=== PATIENT | female | born 1930 | race Caucasian/White ===

== ENCOUNTER → 2016-08-28 | Outpatient (CLI) | payer MEDICARE, OTHER ==
[2016-08-28 13:39] LABS: INR 1.14
== END ==
LOC: M SMT 11:28
PROVIDERS: ATTEND Emergency Medicine
DX: I74.9 Embolism and thrombosis of unspecified artery (principal)

== ENCOUNTER → 2016-09-07 | Outpatient (CLI) | payer MEDICARE, OTHER ==
[2016-09-07 13:28] LABS: INR 2.2
== END ==
LOC: M SMT 10:56
PROVIDERS: ATTEND Emergency Medicine
DX: I74.9 Embolism and thrombosis of unspecified artery (principal)

== ENCOUNTER → 2016-09-21 | Outpatient (CLI) | payer MEDICARE, OTHER ==
[2016-09-21 13:12] LABS: INR 2.54
== END ==
LOC: M SMT 10:38
PROVIDERS: ATTEND Emergency Medicine
DX: I74.9 Embolism and thrombosis of unspecified artery (principal)

== ENCOUNTER → 2016-10-12 | Outpatient (CLI) | payer MEDICARE, OTHER ==
[2016-10-12 13:41] LABS: INR 2.41
== END ==
LOC: M SMT 11:08
PROVIDERS: ATTEND Emergency Medicine
DX: I74.9 Embolism and thrombosis of unspecified artery (principal)

== ENCOUNTER → 2016-11-02 | Outpatient (CLI) | payer MEDICARE, OTHER ==
[2016-11-02 13:57] LABS: INR 2.09
== END ==
LOC: M SMT 10:00
PROVIDERS: ATTEND Emergency Medicine
DX: I74.9 Embolism and thrombosis of unspecified artery (principal)

== ENCOUNTER → 2016-12-01 | Outpatient (CLI) | payer MEDICARE, OTHER ==
[2016-12-01 13:22] LABS: INR 1.94
== END ==
LOC: M SMT 11:10
PROVIDERS: ATTEND Emergency Medicine
DX: I74.9 Embolism and thrombosis of unspecified artery (principal)

== ENCOUNTER → 2017-11-10 | Outpatient (CLI) | payer MEDICARE, OTHER | LOC: M LRY 12:35 | DX: M25.761 Osteophyte, right knee (principal); I70.201 Unspecified atherosclerosis of native arteries of extremities, right leg; M25.561 Pain in right knee | CPT/HCPCS: 73564; G0463 ==

== ENCOUNTER → 2018-11-03 | Outpatient (CLI) | payer MEDICARE, OTHER ==
--- NOTE | 2018-11-03 17:53 | REP ---
REASON FOR EXAM: Shoulder pain. There are no priors for comparison. There is mild AC joint DJD. The glenohumeral relationship is within normal limits. There is no acute fracture, dislocation, or subluxation. IMPRESSION:Chronic changes as described above. Electronically Signed by Jim Thomas DO 11/04/2018 10:31 A
== END ==
LOC: M LRY 13:55
PROVIDERS: ATTEND Family Medicine
DX: M19.012 Primary osteoarthritis, left shoulder (principal); M25.512 Pain in left shoulder
CPT/HCPCS: 73030; G0463

== ENCOUNTER → 2019-12-08 | Outpatient (CLI) | payer OTHER, MEDICARE ==
[~2019-12-08] MED LIST: ALPR0.25; AMLODIPINE 2.5; ATIV1TAB10; BACT800T5 PO; HYOS125TA; MORP20SO3; OMEP-218
[2019-12-08 15:03] LABS: BLOOD UREA NITROGEN 14 MG/DL (7-18); CREATININE FOR GFR 0.83 MG/DL (0.55-1.30); GLOMERULAR FILTRATION RATE > 60.0 (>32)
== END ==
LOC: M LAB 13:29
PROVIDERS: ATTEND Surgery
DX: Z01.818 Encounter for other preprocedural examination (principal)

== ENCOUNTER → 2019-12-13 | Outpatient (CLI) | payer MEDICARE, OTHER ==
[~2019-12-13] MED LIST changes: +GASTROGRAFIN SOLUTION 30ML (Q9963) As Ordered ONE; +ISOVUE-370 76% 100ML VIAL As Ordered ONE
--- NOTE | 2019-12-29 08:22 | REP ---
CT ABDOMEN AND PELVIS CLINICAL: Neoplasm of the pancreas. TECHNIQUE: Axial contrast enhanced images from the lung bases to the pubic symphysis using oral (per protocol) and 100 mL Isovue-370 intravenous contrast material with coronal and sagittal reformations. Precontrast arterial phase and delayed-phased images of the abdomen were obtained as well. COMPARISON: None available. FINDINGS: A pigtail catheter via the anterior abdominal wall extends through the liver into the region of the eileen hepatis and appears to be within the lumen of the duodenum. Correlation with surgical notes and procedure is recommended. A pancreatic ductal stent is also identified extending from the head of the pancreas into the duodenum. Further evaluation of the pancreas suggests an enlarged pancreatic head with low-density changes measuring 2.5 cm, which may represent the malignancy as per the history. The liver itself demonstrates significant biliary ductal dilatation and there are heterogeneous low-density changes and rounded low-density lesions noted, primarily involving the left hepatic lobe, concerning for cysts, but metastatic lesions cannot definitively be excluded. Spleen, bilateral adrenal glands, presumed collapsed gallbladder, and bilateral kidneys are essentially normal. Subcentimeter left renal hypodensity likely represents a small cyst, but is too small to characterize. The enteric system is without obstruction or acute inflammatory process. Few sigmoid diverticula noted without acute diverticulitis. Pelvis demonstrates normal bladder and evidence for prior hysterectomy. No ascites. No focal obvious mass lesion within the abdomen or pelvis. No obvious adenopathy. Abdominal aorta and vasculature demonstrate atherosclerotic changes without aneurysm or dissection. Musculoskeletal structures demonstrate degenerative changes without focal osseous abnormality. Lung bases demonstrate chronic appearing interstitial changes and mild scarring. IMPRESSION: * Pigtail catheter and pancreatic duct stent as described above should be correlated with surgical history. * Significant intrahepatic biliary ductal dilatation along with irregular low- density changes within the left lobe of the liver, which may represent both cysts and possible underlying metastatic disease given the patients stated history of pancreatic neoplasm. * No ascites. No further mass lesion within the abdomen or pelvis. No obvious adenopathy. * Pancreatic head lesion consistent with the given history of malignancy. MTDD
== END ==
LOC: M RAD 08:01
PROVIDERS: ATTEND Surgery
DX: C25.0 Malignant neoplasm of head of pancreas (principal); K57.30 Diverticulosis of large intestine without perforation or abscess without bleeding; K76.89 Other specified diseases of liver; Z95.828 Presence of other vascular implants and grafts
CPT/HCPCS: 74178; Q9963; Q9967

== ENCOUNTER 2019-12-18 14:17 | Emergency (ER) | payer MEDICARE, OTHER ==
[~2019-12-18] VITALS: Ht 152.4 cm; Wt 45.9 kg
[2019-12-18] MEDS ORDERED: AMLODIPINE 2.5 (14:33)
[2019-12-18] MEDS ORDERED: OMEP-218 (14:33)
[2019-12-18] MEDS ORDERED: ATIV1TAB10 (14:33)
[2019-12-18] MEDS ORDERED: MORP20SO3 (14:33)
[2019-12-18] MEDS ORDERED: ALPR0.25 (14:33)
[2019-12-18] MEDS ORDERED: HYOS125TA (14:33)
[2019-12-18] MEDS ORDERED: KETOROLAC 30 MG/ML 1ML VIAL IV ONE (16:45)
[2019-12-18 17:54] LABS: BASO # 0.1 10^3/uL (0.0-0.2); BASO % 0.8 % (0.0-1.0); EOS # 0.1 10^3/uL (0.0-0.5); EOS % 0.8 % (0.0-3.0); HEMATOCRIT 32.4 % (36.0-47.0); HEMOGLOBIN 10.2 g/dl (12.0-15.5); LYMPH # 1.9 10^3/uL (1.5-5.0); LYMPH % 16.2 % (24.0-44.0); MEAN CORPUSCULAR HEMOGLOBIN 28.8 pg (27.0-33.0); MEAN CORPUSCULAR HGB CONC 31.5 g/dl (32.0-36.5); MEAN CORPUSCULAR VOLUME 91.5 fl (80.0-96.0); MONO # 0.8 10^3/uL (0.0-0.8); MONO % 6.8 % (0.0-5.0); PLATELET COUNT, AUTOMATED 446 10^3/uL (150-450); RED BLOOD COUNT 3.54 10^6/uL (4.00-5.40); WHITE BLOOD COUNT 11.9 10^3/uL (4.0-10.0)
[2019-12-18 17:59] LABS: PARTIAL THROMBOPLASTIN TIME 45.5 SECONDS (24.2-38.5)
[2019-12-18 18:13] LABS: ALBUMIN 2.6 GM/DL (3.2-5.2); BILIRUBIN,DIRECT 0.8 MG/DL (0.0-0.2); TOTAL PROTEIN 7.2 GM/DL (6.4-8.2)
--- NOTE | 2019-12-18 18:44 | REPVR ---
PROCEDURE INFORMATION: Exam: US Abdomen, Limited; Soft Tissue Exam date and time: 12/18/2019 5:36 PM Age: 89 years old Clinical indication: Mass, lump, or swelling; Additional info: Had drain in gb came out draining bile ? infected site/gb TECHNIQUE: Imaging protocol: US abdomen. Real time ultrasound with image documentation. Limited exam focused on the soft tissues. COMPARISON: CT ABD PELVIS W/O FOL BY WIT 12/13/2019 9:25 AM FINDINGS: Gallbladder: A questionable contracted 5.6 x 0.5 x 0.6 cm gallbladder is seen. Soft tissues: The surgical drainage site in the anterior abdominal wall and deep soft tissues shows an irregularly-shaped 3.5 x 2.3 x 1.6 cm fluid collection which has a minimal amount of vascularity in its periphery. This could be a biloma or a partially-treated abscess in the site of a previously pulled surgical drain. IMPRESSION: 1. A questionable contracted 5.6 x 0.5 x 0.6 cm gallbladder is seen. 2. The surgical drainage site in the anterior abdominal wall and deep soft tissues shows an irregularly-shaped 3.5 x 2.3 x 1.6 cm fluid collection which has a minimal amount of vascularity in its periphery. This could be a biloma or a partially-treated abscess in the site of a previously pulled surgical drain. Electronically signed by: John Kearney On 12/18/2019 18:44:21 PM
--- NOTE | 2019-12-18 18:46 | REPVR ---
PROCEDURE INFORMATION: Exam: XR Chest, 2 Views Exam date and time: 12/18/2019 4:34 PM Age: 89 years old Clinical indication: Other: Catheter tube fell out; Additional info: Catheter? In lung stopped draininig TECHNIQUE: Imaging protocol: XR of the chest Views: 2 views. COMPARISON: No relevant prior studies available. FINDINGS: Lungs: Both lungs appear well-aerated. Mild pleural thickening versus a tiny pleural effusion is seen in the right minor fissure. Heart/Mediastinum: No cardiomegaly. The pulmonary vasculature is normal. Bones/joints: Unremarkable. Intraperitoneal space: No free intraperitoneal air below the diaphragm. IMPRESSION: 1. No free intraperitoneal air below the diaphragm. 2. Both lungs appear well-aerated. Mild pleural thickening versus a tiny pleural effusion is seen in the right minor fissure. 3. No cardiomegaly. The pulmonary vasculature is normal. Electronically signed by: John Kearney On 12/18/2019 18:46:00 PM
[2019-12-18] MEDS ORDERED: BACTRIM 160MG/800MG DS TAB PO ONE (19:00)
[2019-12-18] MEDS ORDERED: BACT800T5 PO (19:01)
[2019-12-18 19:19] LABS: INR 1.44; PROTHROMBIN TIME 17.8 SECONDS (12.5-14.3)
[2019-12-18 19:32] VITALS: BP 117/54
--- NOTE | 2019-12-18 19:45 | ED PDOC ---
Post-Departure Follow-Up abdl us faxed to dr ordaz for fu Drew Van MD Dec 18, 2019 19:45
== END 2019-12-18 19:38 | disposition home or self-care (01) ==
LOC: M ED 14:17
DX: T85.79XA Infection and inflammatory reaction due to other internal prosthetic devices, implants and grafts, initial encounter (principal); Y92.9 Unspecified place or not applicable; Y93.9 Activity, unspecified; Z85.07 Personal history of malignant neoplasm of pancreas; Z85.05 Personal history of malignant neoplasm of liver; Z79.899 Other long term (current) drug therapy; Z88.0 Allergy status to penicillin; Z88.1 Allergy status to other antibiotic agents; Z88.8 Allergy status to other drugs, medicaments and biological substances
CPT/HCPCS: 71046; 76705; 80047; 80076; 83605; 83690; 85025; 85610; 85730; 96374; 99284; J1885

== ENCOUNTER → 2019-12-26 | Outpatient (POV) | payer MEDICARE, OTHER ==
[~2019-12-26] MED LIST changes: -GASTROGRAFIN SOLUTION 30ML (Q9963) As Ordered ONE; -ISOVUE-370 76% 100ML VIAL As Ordered ONE
--- NOTE | 2019-12-27 14:30 | IRCOV ---
[facility] IR Consult Office Visit IR Consult Office Visit DATE: Dec 26, 2019 Patient agreed to this telephone consultation. I spent 30 minutes reviewing patient's notes, imaging and talking to the patient. Patient's son also participated on the telephone to assist with this call. REASON FOR CONSULTATION/CHIEF COMPLAINT: Pancreatic cancer. Drain fell out 2 weeks ago. HISTORY OF PRESENT ILLNESS: 89-year-old female with pancreatic cancer has returned home on hospice for comfort care measures. Patient received her treatment in [place] where she had left and right-hepatic internal/external biliary drains placed for hyperbilirubinemia. Patient son states that the right- sided drain had always drained well. The left-sided drain had not drained. After the procedure, patient's jaundice resolved. Patient is currently not jaundiced. Patient is eating and drinking well. No pruritus, nausea or vomiting. No fevers, chills or rigors. Patient denies pain. No further chemotherapy planned. ALLERGIES: Please see below. HOME MEDICATIONS: Please see below. PAST MEDICAL HISTORY: DVT Subdural hematoma Hypertension Right knee pain Pancreatic cancer Hyperthyroidism PAST SURGICAL HISTORY: Appendectomy Hysterectomy Varicose vein ligation and stripping Craniotomy right frontal and parietal for hematoma drainage in 2018 FAMILY HISTORY: Noncontributory SOCIAL HISTORY: Ex-smoker. Denies alcohol or drugs. REVIEW OF SYSTEMS: Otherwise negative PHYSICAL EXAMINATION: No video on patient side. LABORATORY DATA: 12/18/2019 hemoglobin 10.2 hematocrit 32.4 WBC 11.9 platelets 446 direct bilirubin 0.8 total bilirubin 1.0 AST 36 ALT 42 ALP 741 INR 1.44 Imaging: I personally reviewed the CT abdomen and pelvis with contrast performed 12/03/2019. Pancreatic head mass with surrounding mass effect. Left hepatic lobe access internal/external biliary drain in place. Large left hepatic lobe bile duct is noted. There is mild/moderate right hepatic lobe intra-hepatic biliary duct dilation. No ascites. ASSESSMENT/PLAN: 89-year-old female with pancreatic cancer returns home for hospice and comfort measures. Her right-sided internal and external biliary drainage catheter had fallen out 2 weeks ago. Now the patient is completely asymptomatic without pain, jaundice or biliary sepsis. At this point I would exchange out the left-sided access which is likely blocked, so that she may continue to drain from her left internal/external hepatic drain. At the same time I'll perform an cholangiogram and evaluate her right hepatic drainage via the left hepatic access. Unless the gets uncomfortable with extreme and symptomatic jaundice, pain or sepsis, I do not see the value in a new right internal/external hepatic drain at this time. As far as comfort measures go, one drain is better tolerated than 2. Patient will be scheduled for left hepatic internal external biliary drain exchange. I spent 30 minutes in consultation with the patient. Thank you for this referral. Cc Dr. Dupont Cc Dr. Car Rubio Allergies Coded Allergies: Penicillins (Verified Allergy, Unknown, 12/18/19) bacitracin (Verified Allergy, Unknown, 12/18/19) meperidine (Verified Allergy, Unknown, 12/18/19) neomycin (Verified Allergy, Unknown, 12/18/19) polymyxin B (Verified Allergy, Unknown, 12/18/19) Home Medications Scheduled Sulfamethoxazole/Trimethoprim (Bactrim Ds Tablet), 1 TAB PO Q12H Miscellaneous Medications Alprazolam (Alprazolam), (Reported) Hyoscyamine Sulfate (Hyoscyamine Sulfate), (Reported) Lorazepam (Ativan), (Reported) Morphine Sulfate (Morphine Sulfate), (Reported) Omeprazole (Omeprazole), (Reported) [Amlodipine 2.5], (Reported) MIGUEL ANGEL MCKEON MD Dec 27, 2019 14:30
== END ==
LOC: M TMIRPOV 08:38
PROVIDERS: ATTEND Radiology Diagnostic Radiology
DX: C25.9 Malignant neoplasm of pancreas, unspecified (principal); I10 Essential (primary) hypertension; E03.9 Hypothyroidism, unspecified; Z96.89 Presence of other specified functional implants

== ENCOUNTER → 2020-01-09 | Outpatient (POV) | payer MEDICARE, OTHER ==
--- NOTE | 2020-01-10 12:35 | IRPN ---
[facility] IR Progress Note IR Progress Note DATE: Jan 09, 2020 Patient was seen in person the day after this clinic visit. Both encounters are recorded in this 1 document. FOLLOW-UP: Status post left internal/external biliary drain and right external biliary drain placement. The right biliary drain is kinked and not draining, per patient. There is pain around the site. ON EXAMINATION: The right external biliary drain is retracted with 1 sidehole outside of the skin. There is bile leaking around the catheter. No drainage coming through the catheter. The catheter is kinked by the suture. The cath site was prepped in a sterile fashion. The suture was cut. A new 2-0 Prolene suture was used to secure the catheter in place. A sterile dressing was applied to the site. The drain is now draining. The catheter was flushed with 10 mL sterile saline. IMPRESSION: Right external biliary drain was retracted and kinked. A new suture was applied to the site. A sterile dressing was applied to the site. Patient to return for routine exchange in [address] Napoleon Ontiveros Allergies Coded Allergies: Penicillins (Verified Allergy, Unknown, 12/18/19) bacitracin (Verified Allergy, Unknown, 12/18/19) meperidine (Verified Allergy, Unknown, 12/18/19) neomycin (Verified Allergy, Unknown, 12/18/19) polymyxin B (Verified Allergy, Unknown, 12/18/19) MIGUEL ANGEL MCKEON MD Jan 10, 2020 12:35
== END ==
LOC: M TMIRPOV 08:22
PROVIDERS: ATTEND Radiology Diagnostic Radiology
DX: Z46.82 Encounter for fitting and adjustment of non-vascular catheter (principal)

== ENCOUNTER → 2020-01-10 | Outpatient (CLI) | payer MEDICARE, OTHER ==
[~2020-01-10] MED LIST changes: +ACETAMINOPHEN 325 MG TAB As Ordered ONE; +ACETAMINOPHEN TAB 650MG DOSE (2X325MG) PO ONE; +ISOVUE-300 61% 50ML VIAL As Ordered ONE; +LIDOCAINE 1% MDV 20ML VIAL As Ordered ONE; +MIDAZOLAM INJ 2MG/2ML VIAL (J2250 PER 1MG) As Ordered ONE; +diphenhydrAMINE 50MG/ML VIAL (J1200) As Ordered ONE; +fentaNYL 100 MCG/2 ML INJECTION (J3010) As Ordered ONE
[2020-01-10 08:01] VITALS: BP 179/82
--- NOTE | 2020-01-17 10:17 | IRPN ---
[facility] IR Progress Note IR Progress Note DATE: Jan 10, 2020 DATE: Jan 10, 2020 Patient was seen in person. FOLLOW-UP: Status post left internal/external biliary drain and right external biliary drain placement. The right biliary drain is kinked and not draining, per patient. There is pain around the site. ON EXAMINATION: The right external biliary drain is retracted with 1 sidehole outside of the skin. There is bile leaking around the catheter. No drainage coming through the catheter. The catheter is kinked by the suture. The cath site was prepped in a sterile fashion. The suture was cut. A new 2-0 Prolene suture was used to secure the catheter in place. A sterile dressing was applied to the site. The drain is now draining. The catheter was flushed with 10 mL sterile saline. IMPRESSION: Right external biliary drain was retracted and kinked. A new suture was applied to the site. A sterile dressing was applied to the site. Patient to return for routine exchange in [address] Napoleon Ontiveros Allergies Coded Allergies: Penicillins (Verified Allergy, Unknown, 12/18/19) bacitracin (Verified Allergy, Unknown, 12/18/19) meperidine (Verified Allergy, Unknown, 12/18/19) neomycin (Verified Allergy, Unknown, 12/18/19) polymyxin B (Verified Allergy, Unknown, 12/18/19) Allergies Coded Allergies: Penicillins (Verified Allergy, Unknown, 12/18/19) bacitracin (Verified Allergy, Unknown, 12/18/19) meperidine (Verified Allergy, Unknown, 12/18/19) neomycin (Verified Allergy, Unknown, 12/18/19) polymyxin B (Verified Allergy, Unknown, 12/18/19) MIGUEL ANGEL MCKEON MD Jan 17, 2020 10:17
== END ==
LOC: M IRPRO 07:37
PROVIDERS: ATTEND Radiology Diagnostic Radiology
DX: Z48.03 Encounter for change or removal of drains (principal)

== ENCOUNTER → 2020-01-22 | Outpatient (CLI) | payer MEDICARE, OTHER ==
[~2020-01-22] MED LIST changes: -ACETAMINOPHEN 325 MG TAB As Ordered ONE; -ACETAMINOPHEN TAB 650MG DOSE (2X325MG) PO ONE; -ISOVUE-300 61% 50ML VIAL As Ordered ONE; -LIDOCAINE 1% MDV 20ML VIAL As Ordered ONE; -MIDAZOLAM INJ 2MG/2ML VIAL (J2250 PER 1MG) As Ordered ONE; -diphenhydrAMINE 50MG/ML VIAL (J1200) As Ordered ONE; -fentaNYL 100 MCG/2 ML INJECTION (J3010) As Ordered ONE
[2020-01-22 13:50] VITALS: BP 140/69
--- NOTE | 2020-01-24 12:13 | IRPN ---
[facility] IR Progress Note IR Progress Note DATE: Jan 22, 2020 FOLLOW-UP: Patient with advanced pancreatic cancer on comfort measures only. Family would like biliary drains removed for comfort. ON EXAMINATION: Left hepatic and right hepatic lobe biliary drains in place. Both biliary drains were removed, hemostasis achieved and a sterile dressing was applied to the site. Patient tolerated the procedure well. IMPRESSION: Both biliary drains removed per family's request as patient is for comfort measures only. The sites may continue to drain bile for a couple of months and require dressing changes as needed. Thank you Allergies Coded Allergies: Penicillins (Verified Allergy, Unknown, 12/18/19) bacitracin (Verified Allergy, Unknown, 12/18/19) meperidine (Verified Allergy, Unknown, 12/18/19) neomycin (Verified Allergy, Unknown, 12/18/19) polymyxin B (Verified Allergy, Unknown, 12/18/19) VS,Fishbone, I+O VS, Fishbone, I+O Vital Signs Date Time Temp Pulse Resp B/P (MAP) Pulse Ox O2 Delivery O2 Flow Rate FiO2 01/22/20 13:50 75 20 97 Room Air 01/22/20 12:20 99.8 MIGUEL ANGEL MCKEON MD Jan 24, 2020 12:13
== END ==
LOC: M IRPRO 11:59
PROVIDERS: ATTEND Radiology Diagnostic Radiology
DX: Z48.03 Encounter for change or removal of drains (principal); C25.9 Malignant neoplasm of pancreas, unspecified